=== PATIENT | male | born 1950 | race Caucasian/White ===

== ENCOUNTER 2017-11-15 06:50 | Day surgery (SDC) | payer OTHER ==
[~2017-11-15] VITALS: Ht 165.1 cm; Wt 59.5 kg
[~2017-11-15 06:50] MED LIST: AMIT25 PO; DICL75ER PO; FOLI1 PO; HYDSUL200 PO; LISI20 PO; Levaquin750 MG PO; Methotrexa25 MG/1 ML; PRED1 PO; SIMV5
[2017-11-15] MEDS ORDERED: NAPR500EC (07:11)
== END 2017-11-15 09:45 | disposition home or self-care (01) ==
LOC: ORSCSDS 06:50
PROVIDERS: Internal Medicine Gastroenterology
PROC: 0DBK8ZX Excision of Ascending Colon, Via Natural or Artificial Opening Endoscopic, Diagnostic (ICD-10-PCS; principal; 2017-11-15 08:00)
PROC: 0DBP8ZX Excision of Rectum, Via Natural or Artificial Opening Endoscopic, Diagnostic (ICD-10-PCS; principal; 2017-11-15 08:00)
PROC: 0DB68ZX Excision of Stomach, Via Natural or Artificial Opening Endoscopic, Diagnostic (ICD-10-PCS; 2017-11-15 08:00)
DX: Z12.11 Encounter for screening for malignant neoplasm of colon (principal); K31.89 Other diseases of stomach and duodenum; K62.1 Rectal polyp; D12.2 Benign neoplasm of ascending colon; K29.70 Gastritis, unspecified, without bleeding; K64.8 Other hemorrhoids; I10 Essential (primary) hypertension; E78.5 Hyperlipidemia, unspecified; Z86.010 Personal history of colon polyps; Z87.891 Personal history of nicotine dependence; Z79.899 Other long term (current) drug therapy
CPT/HCPCS: 88305; 88342; J0330; J1980; J2405; J7040

== ENCOUNTER 2018-08-19 13:22 | Day surgery (SDC) | payer OTHER ==
[~2018-08-19] VITALS: Ht 165.1 cm; Wt 61.1 kg
[~2018-08-19 13:22] MED LIST changes: +NAPR500EC
--- NOTE | 2018-08-19 15:33 | NUR ---
08/19/18 1532 Jannette Castro PT UPDATED OF PREVIOUS CASE FINISHING. PT UNDERSTANDING. CALL LIGHT WITHIN REACH.
== END 2018-08-19 16:38 | disposition home or self-care (01) ==
LOC: ORSCSDS 13:22
PROVIDERS: Internal Medicine Gastroenterology
PROC: 0DB68ZX Excision of Stomach, Via Natural or Artificial Opening Endoscopic, Diagnostic (ICD-10-PCS; principal; 2018-08-19 15:00)
DX: K31.89 Other diseases of stomach and duodenum (principal); K44.9 Diaphragmatic hernia without obstruction or gangrene; Z87.891 Personal history of nicotine dependence
CPT/HCPCS: J2704; J7120

== ENCOUNTER 2020-07-29 06:28 | Day surgery (SDC) | payer OTHER ==
[~2020-07-29] VITALS: Ht 165.1 cm; Wt 60.7 kg
[~2020-07-29 06:28] MED LIST changes: +ZOCOR20 MG PO
== END 2020-07-29 08:32 | disposition home or self-care (01) ==
LOC: ORSCSDS 06:28
PROVIDERS: Internal Medicine Gastroenterology
PROC: 0DB78ZX Excision of Stomach, Pylorus, Via Natural or Artificial Opening Endoscopic, Diagnostic (ICD-10-PCS; principal; 2020-07-29 07:30)
DX: K92.0 Hematemesis (principal); K29.70 Gastritis, unspecified, without bleeding; Z85.028 Personal history of other malignant neoplasm of stomach; K44.9 Diaphragmatic hernia without obstruction or gangrene; I10 Essential (primary) hypertension; E78.5 Hyperlipidemia, unspecified
CPT/HCPCS: 88305; 88341; 88342; J0330; J0461; J2405; J2704; J7120

== ENCOUNTER 2020-10-06 07:52 | Day surgery (SDC) | payer OTHER ==
[~2020-10-06] VITALS: Ht 165.1 cm; Wt 60.7 kg
== END 2020-10-06 10:00 | disposition home or self-care (01) ==
LOC: ORSCSDS 07:52
PROVIDERS: Ophthalmology
PROC: 08RJ3JZ Replacement of Right Lens with Synthetic Substitute, Percutaneous Approach (ICD-10-PCS; principal; 2020-10-06 09:15)
DX: H25.11 Age-related nuclear cataract, right eye (principal); I10 Essential (primary) hypertension; Z87.891 Personal history of nicotine dependence; E78.5 Hyperlipidemia, unspecified; Z79.899 Other long term (current) drug therapy
CPT/HCPCS: J1100; J2001; J2250; J2405; J3010; J3301; J7040; V2632

== ENCOUNTER 2020-10-20 08:43 | Day surgery (SDC) | payer OTHER ==
[~2020-10-20] VITALS: Ht 165.1 cm; Wt 133.4 kg
--- NOTE | 2020-10-20 09:25 | NUR ---
10/20/20 0925 Sharon Phelps TETRACAINE DROP PLACED IN RT EYE PER DR ORDERS AT 0914. PLEDGET PLACED IN RT EYE PER DR ORDERS AT 0920.
== END 2020-10-20 10:36 | disposition home or self-care (01) ==
LOC: ORSCSDS 08:43
PROVIDERS: Ophthalmology
PROC: 08RK3JZ Replacement of Left Lens with Synthetic Substitute, Percutaneous Approach (ICD-10-PCS; principal; 2020-10-20 10:30)
DX: H25.12 Age-related nuclear cataract, left eye (principal); I10 Essential (primary) hypertension; E78.5 Hyperlipidemia, unspecified; Z79.899 Other long term (current) drug therapy
CPT/HCPCS: J2001; J2250; J3010; J3301; J7040; V2632

== ENCOUNTER 2022-01-03 08:17 | Day surgery (SDC) | payer OTHER ==
[~2022-01-03] VITALS: Ht 165.1 cm; Wt 57.2 kg
[~2022-01-03 08:17] MED LIST changes: +IBUP800 PO
== END 2022-01-03 10:51 | disposition home or self-care (01) ==
LOC: ORSCSDS 08:17
PROVIDERS: Internal Medicine Gastroenterology
PROC: 0DJD8ZZ Inspection of Lower Intestinal Tract, Via Natural or Artificial Opening Endoscopic (ICD-10-PCS; principal; 2022-01-03 09:30)
DX: Z12.11 Encounter for screening for malignant neoplasm of colon (principal); Z86.010 Personal history of colon polyps; K57.30 Diverticulosis of large intestine without perforation or abscess without bleeding; R73.03 Prediabetes; Z85.72 Personal history of non-Hodgkin lymphomas; Z87.891 Personal history of nicotine dependence; Z79.899 Other long term (current) drug therapy
CPT/HCPCS: J2250; J2704; J7120

== ENCOUNTER 2023-03-26 12:10 | Day surgery (SDC) | payer OTHER ==
[~2023-03-26] VITALS: Ht 165.1 cm; Wt 60.1 kg
[2023-03-26] MEDS ORDERED: OMEP20ER (12:30)
[2023-03-26] MEDS ORDERED: METF500 (12:30)
[2023-03-26 14:51] VITALS: BP 97/68
== END 2023-03-26 15:08 | disposition home or self-care (01) ==
LOC: ORSCSDS 12:10
DX: K31.A0 Gastric intestinal metaplasia, unspecified (principal); K29.50 Unspecified chronic gastritis without bleeding; K22.2 Esophageal obstruction; K44.9 Diaphragmatic hernia without obstruction or gangrene; Z85.028 Personal history of other malignant neoplasm of stomach; Z87.891 Personal history of nicotine dependence
CPT/HCPCS: 82947; 88305; 88341; 88342; C1726; J0461; J2001; J2405; J2704; Q9968

== ENCOUNTER 2024-03-31 06:41 | Day surgery (SDC) | payer MEDICARE ==
[~2024-03-31] VITALS: Ht 165.1 cm; Wt 59.7 kg
[~2024-03-31 06:41] MED LIST changes: +IBUP200 PO; -IBUP800 PO; +Lactated Ringer's 1,000 ML ONE; +METF500; +OMEP20ER
[2024-03-31] MEDS ORDERED: propofoL 50 ML IV ONE (07:29)
[2024-03-31] MEDS ORDERED: Lactated Ringer's 1,000 ML IV ONE ×3 (07:30→08:42)
[2024-03-31] MEDS ORDERED: Ondansetron HCl 2 MG / ML 2ML Vial ONE (08:14)
--- NOTE | 2024-03-31 09:01 | NUR ---
03/31/24 [address] WRIGHT AND RN TCR, SUSPECT PATIENT MAY HAVE ASPIRATED AT BEGINNING OF PROCEDURE AFTER VOMITING. PROCEDURE WAS ABORTED. UPON ARRIVAL TO STEPDOWN PATIENT ALERT AND ORIENTED, PLACED ON 5L VIA POM MASK. DR WRIGHT AND DR VELEZ CONSULTED AND DR VELEZ CALLING HOSPITALIST TO HAVE PATIENT DIRECTED ADMITTED TO [facility] FOR OBSERVATION. PATIENT'S SPO2 MAINTAINING 94% OR HIGHER ON OXYGEN. CHANGED FROM POM MASK TO 3L VIA N/C AT 0850 AND SPO2 95%. PATIENT DENIES ANY PAIN IN CHEST/THROAT BUT REPORTS 8-9/10 LOW BACK PAIN THAT HE REPORTS IS CHRONIC FOR HIM. LUNG SOUNDS WITH CRACKLES/RALES THROUGHOUT. PATIENT DENIES SOB AND STATES HE FEELS LIKE HE IS BREATHING OKAY. WILL CONTINUE TO MONITOR PATIENT UNTIL ROOM AVAILABLE AT [facility] FOR DIRECT ADMIT.
[2024-03-31 09:15] VITALS: BP 111/63
--- NOTE | 2024-03-31 09:24 | NUR ---
03/31/24 0924 KEVEN KEY PT STARTED COUGHING WHILE IN LATL POSITION WITH MOUTH TILTED DOWN AND THEN IMMEDIATELY STARTED VOMITTING FROME NARES AND MOUTH IN TO THE POM MASK O2 SET AT 10L. VAIBHAV BACA AND JIGAR MCKINLEY AND DIVINA IMMEDIATELY REACTED HELPING TO PROTECT PT AIRWAY W/ RN HELP AND DIRECTION SUCTIONING PT WHILE VAIBHAV HERBERT'D ORDER TO GIVE ZOFRAN 4MG IV PER DR WRIGHT. POM MASK CHANGED AND HEAD POSITION AND SUCTIONING CONTINUED . SEDATION WAS DC IMMEDIATELY AFTER THE FIRST PROPOFOL 70MG TOTAL WAS GIVEN IN INCREMENTAL DOSES PER PROTOCOL. PT O2 SATS DROPPED INTO HIGH 80S BUT NEVER STAYED LOWER THAN 88% LONGER THAN 60 SECONDS. NEW POM MASK FITTED AND O2 INCRESED TO 15 L WHEN LUNGS AUSCULATED AND CRACKLES WERE HEARD. ABORTED PROCEDURE AND SPOKE W/ DR VELEZ REGARDING PROTOCOL FOR PT HOSPITALIZATION FOR POSIBLE ASPIRATION NEEDING OBSERVATION. REPORT GIVEN TO RNS HARVINDER AND CAROLYN IN STEPDOWN.
[2024-03-31] MEDS ORDERED: Ondansetron HCl 2 MG / ML 2ML Vial IV PRN (12:25)
[2024-03-31] MEDS ORDERED: FLU VACC TS2024-25(6MOS UP)/PF 45 MCG/0.5 ML SYRINGE IM SCH (12:25)
[2024-03-31] MEDS ORDERED: Lactobacil 2-S.Thermo-Bifido 1 1 Cap PO SCH (21:00)
[2024-03-31] MEDS ORDERED: MethylPREDNISolone Sod Succ 125 MG Vial IV SCH (21:00)
[2024-04-01] MEDS ORDERED: Enoxaparin 40 MG/0.4 ML SYR SC SCH (09:00)
== END 2024-03-31 09:26 | disposition other institution (70) ==
LOC: ORSCSDS 06:41
PROVIDERS: Specialist
PROC: 0DJD8ZZ Inspection of Lower Intestinal Tract, Via Natural or Artificial Opening Endoscopic (ICD-10-PCS; principal; 2024-03-31 08:00)
DX: Z12.11 Encounter for screening for malignant neoplasm of colon (principal); J69.0 Pneumonitis due to inhalation of food and vomit; Z85.028 Personal history of other malignant neoplasm of stomach; Z86.0100 Personal history of colon polyps, unspecified; K21.9 Gastro-esophageal reflux disease without esophagitis; I10 Essential (primary) hypertension; K22.89 Other specified disease of esophagus; Z87.891 Personal history of nicotine dependence; E11.9 Type 2 diabetes mellitus without complications; Z53.9 Procedure and treatment not carried out, unspecified reason
CPT/HCPCS: J2405; J2704; J7120

== ENCOUNTER 2024-03-31 09:32 | Inpatient (IN) | payer MEDICARE ==
[~2024-03-31] VITALS: Ht 165.1 cm; Wt 61.0 kg
[~2024-03-31 09:32] MED LIST changes: -Lactated Ringer's 1,000 ML ONE
[2024-03-31] MEDS ORDERED: Dexamethasone Sod Phos 10 MG/ML 1ML VIAL PO ONE (10:05)
[2024-03-31] MEDS ORDERED: Albuterol 2.5 MG/3 ML VIAL INH SCH (10:10)
[2024-03-31] MEDS ORDERED: LevoFLOXacin 750 MG/D5W 150ML 150 ML IV ONE (10:10)
[2024-03-31 10:12] LABS: BASOPHILS ABSOLUTE AUTO 0.04 K/mm3 (0.00-0.23); BASOPHILS PERCENT AUTO 1 % (0-2); EOSINOPHILS ABSOLUTE AUTO 0.01 K/mm3 (0.00-0.68); EOSINOPHILS PERCENT AUTO 0 % (0-6); Hematocrit 44.9 % (37.0-53.0); Hemoglobin 15.8 g/dL (13.5-17.5); IMMATURE GRAN ABSOLUTE AUTO 0.02 K/mm3 (0.00-0.10); IMMATURE GRAN PERCENT AUTO 0 % (0-1); LYMPHOCYTES PERCENT AUTO 22 % (21-46); MONOCYTES ABSOLUTE AUTO 0.17 K/mm3 (0.16-1.47); MONOCYTES PERCENT AUTO 3 % (4-13); Mean Corpuscular HGB 31.2 pg (26.0-34.0); Mean Corpuscular HGB Conc 35.2 g/dL (31.5-36.5); Mean Corpuscular Volume 89 fL (80-100); Mean Platelet Volume 9.4 fL (9.1-12.4); NEUTROPHILS ABSOLUTE AUTO 4.74 K/mm3 (1.96-9.15); NEUTROPHILS PERCENT AUTO 74 % (41-73); Platelet Count 247 K/mm3 (150-400); RDW Coefficient Variation 12.2 % (11.7-14.2); RDW Standard Deviation 39.3 fL (35.1-46.3); Red Blood Cell Count 5.07 M/mm3 (4.30-5.90); White Blood Cell Count 6.38 K/mm3 (4.00-11.30)
[2024-03-31 10:37] LABS: Albumin, Blood 3.4 g/dL (3.4-5.0); Albumin/Globulin Ratio 1.2 (0.8-1.8); Bilirubin, Total 1.1 mg/dL (0.1-1.0); Bun/Creatinine Ratio 18.7 (12.0-20.0); Creatinine, Blood 0.96 mg/dL (0.60-1.20); Globulin, Blood 2.9 g/dL (2.2-4.0); Potassium, Blood 4.4 mmol/L (3.5-5.5); Total Protein, Blood 6.3 g/dL (6.4-8.2)
[2024-03-31] MEDS ORDERED: Ondansetron HCl 2 MG / ML 2ML Vial IV ONE (11:00)
[2024-03-31] MEDS ORDERED: Metoclopramide HCl 5MG / ML 2ML Vial IV ONE (11:30)
[2024-03-31] MEDS ORDERED: Lactated Ringer's 1,000 ML IV SCH ×2 (12:20→12:45)
[2024-03-31] MEDS ORDERED: Albuterol 2.5 MG/3 ML VIAL INH PRN (12:40)
[2024-03-31] MEDS ORDERED: Ondansetron HCl 2 MG / ML 2ML Vial IV PRN ×2 (12:40→12:45)
[2024-03-31] MEDS ORDERED: FLU VACC TS2024-25(6MOS UP)/PF 45 MCG/0.5 ML SYRINGE IM SCH (12:45)
[2024-03-31 13:55] VITALS: BP 118/67
--- NOTE | 2024-03-31 14:00 | NUR ---
ARRIVAL TO PCU 16 PT ARRIVED TO PCU 16 AT APPROXIMATELY 1350. PT TRANSFERED FROM ER [facility] TO HOSPITAL BED WITH SBA. PT A&Ox4, CALLS AND COMMUNICATES NEEDS APPROPRIATELY, ORIENTED TO CALL LIGHT/UNIT. BP STABLE, SINUS TACH 110's, DENIES CP/PRESSURE. SpO2> 92% 4L VIA NC, DENIES SOB. PT DENIES PAIN. MILD NAUSEA BUT STATES THAT IT IS IMPROVING. CALL LIGHT IN REACH, BED IN LOWEST POSITION.
[2024-03-31 15:59] VITALS: BP 99/66
[2024-03-31] MEDS ORDERED: Clindamycin 900mg in D5W 50ML 50 ML IV SCH ×2 (16:00→21:30)
--- NOTE | 2024-03-31 17:43 | NUR ---
SHIFT SUMMARY SEE PREVIOUS NOTE, NO ACUTE CHANGES. A&Ox4, CALLS AND COMMUNICATES NEEDS APPROPRIATELY. BP SOFT WITH SBP 90's, MAP> 65, ASYMPTOMATIC. SINUS TACH 100's, DENIES CP/PRESSURE. SpO2> 92% 2L VIA NC, DENIES SOB. PT TOLERATING PO INTAKE. NO OTHER EVENTS, WILL REPORT TO ONCOMING RN.
[2024-03-31 20:47] VITALS: BP 10/52
[2024-03-31] MEDS ORDERED: Famotidine 10 MG/ML 2ML Vial IV SCH (21:00)
[2024-03-31] MEDS ORDERED: MethylPREDNISolone Sod Succ 125 MG Vial IV SCH (21:00)
[2024-03-31] MEDS ORDERED: Lactobacil 2-S.Thermo-Bifido 1 1 Cap PO SCH (21:00)
[2024-04-01] VITALS (7 sets, daily range): BP systolic 94–106; BP diastolic 47–69
[2024-04-01] MEDS ORDERED: NS 250 ML IV PRN (00:40)
[2024-04-01 04:39] LABS: Hematocrit 39.1 % (37.0-53.0); Hemoglobin 14.1 g/dL (13.5-17.5); Mean Corpuscular HGB 31.1 pg (26.0-34.0); Mean Corpuscular HGB Conc 36.1 g/dL (31.5-36.5); Mean Corpuscular Volume 86 fL (80-100); Mean Platelet Volume 9.4 fL (9.1-12.4); Platelet Count 185 K/mm3 (150-400); RDW Coefficient Variation 12.2 % (11.7-14.2); RDW Standard Deviation 38.5 fL (35.1-46.3); Red Blood Cell Count 4.53 M/mm3 (4.30-5.90); White Blood Cell Count 14.99 K/mm3 (4.00-11.30)
[2024-04-01 05:09] LABS: Albumin, Blood 2.6 g/dL (3.4-5.0); Albumin/Globulin Ratio 0.9 (0.8-1.8); Bilirubin, Total 0.9 mg/dL (0.1-1.0); Bun/Creatinine Ratio 13.7 (12.0-20.0); Calcium, Blood 8.3 mg/dL (8.5-10.1); Creatinine, Blood 1.02 mg/dL (0.60-1.20); Globulin, Blood 2.8 g/dL (2.2-4.0); Potassium, Blood 4.3 mmol/L (3.5-5.5); Total Protein, Blood 5.4 g/dL (6.4-8.2)
--- NOTE | 2024-04-01 05:23 | NUR ---
A/O x4. DENIED PAIN THROUGHOUT SHIFT. SLEPT WELL. DESAT ONCE; RECOVERED IMMEDIATELY. ASKED ABOUT POSSIBLY GOING HOME TODAY. BREATH SOUNDS CLEAR; NO DYSPNEA NOTED.
[2024-04-01 05:26] LABS: BAND PERCENT MAN 23 % (0-8); BASOPHILS PERCENT MAN 0 % (0-2); EOSINOPHILS PERCENT MAN 0 % (0-6); LYMPHOCYTES ABSOLUTE MAN 0.59 K/mm3 (0.84-5.20); LYMPHOCYTES PERCENT MAN 4 % (21-46); METAMYELOCYTE ABSOLUTE MAN 0.29 K/mm3 (0.00-0.00); METAMYELOCYTE PERCENT MAN 2 % (0-0); MONOCYTES ABSOLUTE MAN 0.59 K/mm3 (0.16-1.47); MONOCYTES PERCENT MAN 4 % (4-13); MYELOCYTE ABSOLUTE MAN 0.14 K/mm3 (0.00-0.00); MYELOCYTE PERCENT MAN 1 % (0-0); NEUTROPHILS ABSOLUTE MAN 13.34 K/mm3 (1.96-9.15); SEG NEUTROPHILS PERCENT MAN 66 % (41-73); TOTAL CELLS COUNTED 100
[2024-04-01] MEDS ORDERED: Enoxaparin 40 MG/0.4 ML SYR SC SCH (09:00)
--- NOTE | 2024-04-01 14:00 | NUR ---
TRANSFER OF CARE REPORT GIVEN TO DAMIÁN ON MEDICAL FLOOR, PT TRANSFERED TO ROOM 363 VIA WHEELCHAIR WITH ALL BELONGINGS BY AID EDELMIRA. PT A/OX4, DENIES PAIN. PT VITALS STABLE, SYSTOLIC IN 100'S, PT DENIES CHEST PAIN/PRESSURE/SOB PT SATTING ABOVE 90% ON RA, LUNG SOUNDS CLEAR, BUT DIM. PT TOLERATED WALK AROUND THE UNIT AND KEPT 02 SATS ABOVE 90%.
--- NOTE | 2024-04-01 17:23 | NUR ---
SHIFT SUMMARY: "SINDHU" IS A&OX4. VSS, NO ACUTE EVENTS SINCE TRANSFERRING FROM PCU THIS AFTERNOON. PT AMBULATED AROUND THE UNIT WITH STAFF, DENIES ANY DIZZINESS OR LIGHTHEADEDNESS, STEADY GAIT. HE IS INDEPENENT IN THE ROOM, TOLERATING PO INTAKE WELL, AND USES THE CALL LIGHT APPROPRIATELY. HE IS CONTINENT OF BLADDER AND BOWEL. DISCUSSED POSSIBLE DISCHARGE TOMORROW, PT STATES HE WOULD BE HAPPY TO BE DISCHARGED HOME TODAY. IV TO LEFT AC PATENT. HE IS LYING IN BED WITH THE CALL LIGHT IN REACH, BED IN LOWEST POSITION. WILL GIVE REPORT TO DAY SHIFT RN.
--- NOTE | 2024-04-02 04:28 | NUR ---
SHIFT SUMMARY 73 YR M ADMITTED ON 03/31/24. DNR. NO ACUTE CHANGES THIS SHIFT. PT IS VERY PLEASANT AND COOPERATIVE WITH CARE. HE HAS HAD NO C/O PAIN OR DISCOMFORT THIS SHIFT. PER DRUM SPRAYER, HE IS SINUS RYTHM IN THE 80'S. VSS. NO NEW ISSUES TO REPORT. USES CALL LIGHT APPROPRIATELY. BED IN LOW POSITION AND CALL LIGHT IN REACH.
[2024-04-02 06:03] VITALS: BP 92/58
[2024-04-02 07:33] VITALS: BP 105/71
[2024-04-02 09:45] LABS: BASOPHILS ABSOLUTE AUTO 0.02 K/mm3 (0.00-0.23); BASOPHILS PERCENT AUTO 0 % (0-2); EOSINOPHILS PERCENT AUTO 0 % (0-6); Hematocrit 37.3 % (37.0-53.0); Hemoglobin 13.3 g/dL (13.5-17.5); IMMATURE GRAN ABSOLUTE AUTO 0.19 K/mm3 (0.00-0.10); IMMATURE GRAN PERCENT AUTO 1 % (0-1); LYMPHOCYTES ABSOLUTE AUTO 0.97 K/mm3 (0.84-5.20); LYMPHOCYTES PERCENT AUTO 7 % (21-46); MONOCYTES ABSOLUTE AUTO 0.56 K/mm3 (0.16-1.47); MONOCYTES PERCENT AUTO 4 % (4-13); Mean Corpuscular HGB 30.7 pg (26.0-34.0); Mean Corpuscular HGB Conc 35.7 g/dL (31.5-36.5); Mean Corpuscular Volume 86 fL (80-100); Mean Platelet Volume 9.8 fL (9.1-12.4); NEUTROPHILS PERCENT AUTO 88 % (41-73); Platelet Count 185 K/mm3 (150-400); RDW Coefficient Variation 12.5 % (11.7-14.2); RDW Standard Deviation 39.5 fL (35.1-46.3); Red Blood Cell Count 4.33 M/mm3 (4.30-5.90); White Blood Cell Count 14.94 K/mm3 (4.00-11.30)
[2024-04-02 09:58] LABS: Calcium, Blood 8.8 mg/dL (8.5-10.1); Creatinine, Blood 1.09 mg/dL (0.60-1.20); Potassium, Blood 3.7 mmol/L (3.5-5.5)
[2024-04-02] MEDS ORDERED: LevoFLOXacin 750 MG Tab PO SCH (10:00)
[2024-04-02] MEDS ORDERED: LEVO750 PO (12:10)
[2024-04-02] MEDS ORDERED: VISBIOME 112.51 EACH PO (12:10)
[2024-04-02] MEDS ORDERED: FAMO20 PO (12:10)
--- NOTE | 2024-04-02 13:47 | NUR ---
DISCHARGE INSTRUCTIONS DISCUSSED WITH PT AND PRINTED COPY PROVIDED. IV REMOVED. PT TRANSPORTED TO VEHICLE OPERATED BY [employer] FOR TRANSPORTATION HOME. ALL PERSONAL BELONGINGS SENT HOME WITH PT.
== END 2024-04-02 13:44 | disposition home or self-care (01) | DRG 177 ==
LOC: ER 09:32 → PCU 12:35 → MEDS 04-01 14:54
PROVIDERS: Emergency Medicine; ADMIT Internal Medicine
DX: J69.0 Pneumonitis due to inhalation of food and vomit (principal); J96.01 Acute respiratory failure with hypoxia; C85.1A Unspecified B-cell lymphoma, in remission; J18.9 Pneumonia, unspecified organism; K31.A0 Gastric intestinal metaplasia, unspecified; K21.9 Gastro-esophageal reflux disease without esophagitis; I10 Essential (primary) hypertension; R19.7 Diarrhea, unspecified; R00.0 Tachycardia, unspecified; Z92.21 Personal history of antineoplastic chemotherapy; Z87.891 Personal history of nicotine dependence
CPT/HCPCS: 36415; 71045; 80048; 80053; 85025; 93005; 93010; 94644; 94664; 94760; 96365; 96366; 96375; 99284-25; A9270; J1100; J1650; J1956; J2405; J2765; J2919; J7050; J7120

== ENCOUNTER 2025-01-20 11:01 | Day surgery (SDC) | payer OTHER ==
[~2025-01-20] VITALS: Ht 165.1 cm; Wt 56.8 kg
[~2025-01-20 11:01] MED LIST changes: +FAMO20 PO; +LEVO750 PO; +VISBIOME 112.51 EACH PO
--- NOTE | 2025-01-20 12:44 | NUR ---
01/20/25 1244 Jory Sarkar PT. VERBALIZES PAIN IN HIS RIGHT HAND FROM PUNCHING A WALL FROM BEING MAD, RATING "5".
[2025-01-20 16:02] VITALS: BP 88/60
== END 2025-01-20 14:07 | disposition home or self-care (01) ==
LOC: ORSCSDS 11:01
PROVIDERS: Specialist
PROC: 0DB78ZX Excision of Stomach, Pylorus, Via Natural or Artificial Opening Endoscopic, Diagnostic (ICD-10-PCS; principal; 2025-01-20 13:00)
PROC: 0DJD8ZZ Inspection of Lower Intestinal Tract, Via Natural or Artificial Opening Endoscopic (ICD-10-PCS; principal; 2025-01-20 13:00)
PROC: 0DB58ZX Excision of Esophagus, Via Natural or Artificial Opening Endoscopic, Diagnostic (ICD-10-PCS; principal; 2025-01-20 13:00)
DX: K21.9 Gastro-esophageal reflux disease without esophagitis (principal); Z12.11 Encounter for screening for malignant neoplasm of colon; Z86.0101 Personal history of adenomatous and serrated colon polyps; K57.30 Diverticulosis of large intestine without perforation or abscess without bleeding; K44.9 Diaphragmatic hernia without obstruction or gangrene; K22.2 Esophageal obstruction; K64.8 Other hemorrhoids; Z87.891 Personal history of nicotine dependence; I10 Essential (primary) hypertension; E78.5 Hyperlipidemia, unspecified; Z85.72 Personal history of non-Hodgkin lymphomas
CPT/HCPCS: 43239; G0105; 88305; 88341; 88342; J2704; J7120